=== PATIENT | male | born 1995 | race Two or more races ===

== ENCOUNTER 2025-06-17 09:46 | Emergency (ER) | payer MEDICAID, OTHER ==
[~2025-06-17] VITALS: Ht 172.7 cm; Wt 94.9 kg
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
[2025-06-17] MEDS ORDERED: IBUP-1454 PO (11:24)
[2025-06-17 11:36] VITALS: BP 138/89; PULSE 63; RESP 17; TEMP 98.3; O2SAT 99
== END 2025-06-17 11:39 | disposition home or self-care (01) ==
LOC: ER 09:46
DX: S00.81XA Abrasion of other part of head, initial encounter (principal); S63.8X1A Sprain of other part of right wrist and hand, initial encounter; V89.2XXA Person injured in unspecified motor-vehicle accident, traffic, initial encounter; Y93.I9 Activity, other involving external motion; Y92.488 Other paved roadways as the place of occurrence of the external cause; Y99.8 Other external cause status
CPT/HCPCS: 73130